=== PATIENT | female | born 1985 | race Caucasian/White ===

== ENCOUNTER 2016-08-11 12:47 | Emergency (ER) | payer MEDICAID ==
[~2016-08-11] VITALS: Ht 162.6 cm; Wt 64.0 kg
[~2016-08-11 12:47] MED LIST: CARB200T PO; CARB200T6 PO; TOPI-35 PO; TOPI100T9 PO
[2016-08-11 14:04] LABS: BASOPHILS % 0.7 % (0.0-2.0); HEMATOCRIT. 35.8 % (36.0-48.0); HEMOGLOBIN. 12.5 g/dL (12.0-16.0); LYMPHOCYTES % 13.2 % (20.0-50.0); MEAN CORPUSCULAR HEMOGLOBIN 31.2 pg (28.0-32.0); MEAN CORPUSCULAR VOLUME 89.7 fL (81.0-99.0); MEAN PLATELET VOLUME 6.7 fl (7.4-10.4); MONOCYTES % 6.2 % (2.0-8.0); NEUTROPHILS % 79.9 % (40.0-76.0); PLATELET 413 x1000/uL (130-400); RED CELL DISTRIBUTION WIDTH 12.5 % (11.6-14.6)
[2016-08-11 14:08] LABS: CHLORIDE 111 mEq/L (98-107)
[2016-08-11 14:10] LABS: INR 1.1; PROTHROMBIN TIME 11.7 sec
[2016-08-11 14:16] LABS: CARBON DIOXIDE 17 mEq/L (21-32); ETHANOL BLOOD < 10 mg/dL
[2016-08-11 14:17] LABS: HCG SCREEN NEGATIVE
[2016-08-11 17:03] VITALS: BP 117/65
== END 2016-08-11 17:15 | disposition home or self-care (01) ==
LOC: ER 13:46 → CANBEDREQ 17:32
DX: G40.909 Epilepsy, unspecified, not intractable, without status epilepticus (principal)
CPT/HCPCS: 36415; 70450; 71010; 80053; 84703; 85025; 85610; 93005; 99285; G0482